=== PATIENT | female | born 1995 | race Caucasian/White ===

== ENCOUNTER 2017-12-30 01:08 | Emergency (ER) | payer OTHER ==
[~2017-12-30] VITALS: Ht 167.6 cm; Wt 59.0 kg
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
[2017-12-30] MEDS ORDERED: Ketorolac 30mg Inj IV ONE (01:15)
[2017-12-30] MEDS ORDERED: Morphine Sulfate 4mg/ml Inj (IV USE ONLY) IVP ONE (01:15)
[2017-12-30] MEDS ORDERED: LORazepam Inj 2mg/ml 1ml ONE (01:52)
[2017-12-30] MEDS ORDERED: LORazepam Inj 2mg/ml 1ml IV ONE (02:00)
[2017-12-30 02:19] VITALS: BP 109/66
--- NOTE | 2017-12-30 02:25 | Diagnostic Imaging Report ---
EXAM: XR Chest, 1 View CLINICAL HISTORY: TRAUMA TECHNIQUE: Frontal view of the chest. COMPARISON: No relevant prior studies available. FINDINGS: Lungs: Unremarkable. No consolidation. Pleural space: Unremarkable. No pneumothorax. Heart: Unremarkable. No cardiomegaly. Mediastinum: Unremarkable. Bones/joints: Fracture of the midshaft of the left clavicle with 1.1 cm offset of the fracture. IMPRESSION: Fracture of the midshaft of the left clavicle with 1.1 cm offset of the fracture.
--- NOTE | 2017-12-30 02:25 | Diagnostic Imaging Report ---
EXAM: XR Left Clavicle Complete, 2 or More Views CLINICAL HISTORY: TRAUMA TECHNIQUE: Frontal and lordotic views of the left clavicle. COMPARISON: No relevant prior studies available. FINDINGS: Bones/joints: Fracture of the midshaft of the left clavicle with 1.1 cm offset at the fracture line. No dislocation. Soft tissues: Unremarkable. IMPRESSION: Fracture of the midshaft of the left clavicle with 1.1 cm offset at the fracture line.
[2017-12-30] MEDS ORDERED: fentaNYL 100 mcg/2 mL IV ONE (02:45)
[2017-12-30] MEDS ORDERED: Bacitracin Oint UD TOPIC ONE ×2 (02:53→03:00)
[2017-12-30] MEDS ORDERED: NORCO 5-325 TA1 EACH ORAL (03:16)
[2017-12-30] MEDS ORDERED: IBUPROFEN600 MG ORAL (03:16)
[2017-12-30 05:00] VITALS: BP 125/70
== END 2017-12-30 05:00 | disposition home or self-care (01) ==
LOC: EDBD 01:08 → EMR 03:17
DX: S42.022A Displaced fracture of shaft of left clavicle, initial encounter for closed fracture (principal); S60.511A Abrasion of right hand, initial encounter; W03.XXXA Other fall on same level due to collision with another person, initial encounter; Y92.098 Other place in other non-institutional residence as the place of occurrence of the external cause; F17.200 Nicotine dependence, unspecified, uncomplicated; Z88.1 Allergy status to other antibiotic agents
CPT/HCPCS: 71045; 73000; 96374; 96375; 99284; J1885; J2270; J2405; J3010

== ENCOUNTER → 2018-03-24 | Emergency (ER) | payer OTHER ==
[~2018-03-24] VITALS: Ht 170.2 cm; Wt 59.0 kg
[~2018-03-24] MED LIST: ALBUTEROL SULF8.5 GM INH; Albuterol/Ipratropium 3ml neb ONE; IBUPROFEN600 MG ORAL; NORCO 5-325 TA1 EACH ORAL; PREDNISONE20 MG ORAL
[2018-03-24] MEDS: Albuterol ud Inhalation HHN SCH ×3 (07:36→08:00)
[2018-03-24] MEDS: Ipratropium 0.02% Inh Soln 2.5ml UD HHN SCH ×3 (07:36→08:00)
[2018-03-24 07:40] VITALS: BP 134/78
[2018-03-24 07:55] VITALS: BP 134/78
--- NOTE | 2018-03-24 08:24 | Emergency Room Report ---
History of Present Illness General Chief Complaint: Asthma Source: Patient Present Illness HPI 22-year-old female presents ED presents ED for evaluation. Coming in complaining of shortness of breath and wheezing. History of asthma. Started about one hour ago. States she does not have her inhaler. Upon arrival patient is very anxious and crying stating that she is short of breath. History of anxiety. Denies smoking or drug use. No other aggravating relieving factors. Denies any other associated symptoms Allergies: Coded Allergies: AMOXICILLIN (Verified Allergy, Unknown, 12/30/17) Patient History Past Medical History: none Past Surgical History: none Social History: Denies: smoking, alcohol use, drug use Now: No Immunizations: UTD Reviewed Nursing Documentation: PMH: Agreed; PSxH: Agreed Nursing Documentation-PMH Past Medical History: No History, Except For Hx Asthma: Yes Review of Systems All Other Systems: negative except mentioned in HPI Physical Exam Vital Signs Date Time Temp Pulse Resp B/P (MAP) Pulse Ox O2 Delivery O2 Flow Rate FiO2 03/24/18 07:29 98.4 129 28 136/77 95 Room Air 03/24/18 07:30 21 Sp02 EP Interpretation: reviewed, normal General Appearance: alert, GCS 15, non-toxic, mild distress Head: normocephalic, atraumatic Eyes: bilateral eye normal inspection, bilateral eye PERRL ENT: hearing grossly normal, normal pharynx, no angioedema, normal voice Neck: full range of motion, supple/symm/no masses Respiratory: chest non-tender, normal breath sounds, speaking full sentences, wheezing Cardiovascular #1: no edema, tachycardia Cardiovascular #2: 2+ carotid (R), 2+ carotid (L), 2+ radial (R), 2+ radial (L) , 2+ dorsalis pedis (R), 2+ dorsalis pedis (L) Gastrointestinal: normal bowel sounds, non tender, soft, non-distended, no guarding, no rebound Rectal: deferred Genitourinary: normal inspection, no CVA tenderness Musculoskeletal: back normal, gait/station normal, normal range of motion, non- tender Neurologic: alert, oriented x3, responsive, motor strength/tone normal, sensory intact, speech normal Psychiatric: judgement/insight normal, memory normal, mood/affect normal, no suicidal/homicidal ideation Reflexes: 3+ bicep (R), 3+ bicep (L), 3+ tricep (R), 3+ tricep (L), 3+ knee (R) , 3+ knee (L) Skin: normal color, no rash, warm/dry, well hydrated Lymphatic: no adenopathy Medical Decision Making Diagnostic Impression: Primary Impression: Asthma exacerbation Qualified Codes: J45.901 - Unspecified asthma with (acute) exacerbation ER Course Hospital Course 22-year-old female presents to ED complaining of SOB,wheezing, anxiety Differential diagnoses include: URI, bronchitis, asthma/COPD, pneumonia Clinical course Patient placed on stretcher. After initial history, physical exam reveals a female in no acute distress. Bilateral TM unremarkable. No pharyngeal erythema. No tonsillar exudates. No lymphadenopathy. wheezing noted on exam , no signs of respiratory distress or retractions. Patient given Prednisone and albuterol treatment in ED with symptoms improved. On reassessment patient feels better. No longer feeling anxious as her symptoms have improved. Reassurance given. Safe for discharge close outpatient follow-up Diagnosis - asthma exacerbation Stable and discharged home with prescriptions for albuterol, prednisone. Instructed to followup with PMD. Return to ED if symptoms recur or worsen Last Vital Signs Date Time Temp Pulse Resp B/P (MAP) Pulse Ox O2 Delivery O2 Flow Rate FiO2 03/24/18 07:55 98.1 123 18 134/78 100 Room Air 03/24/18 07:30 21 Status: improved Disposition: HOME, SELF-CARE Condition: Stable Scripts Albuterol Sulfate* (ALBUTEROL SULFATE MDI*) 8.5 Gm Hfa.aer.ad 2 PUFF INH Q6H, #1 EA 0 Refills Prov: Juan Faulkner MD 03/24/18 Prednisone* (PREDNISONE*) 20 Mg Tablet 40 MG ORAL DAILY, #10 TAB Prov: Juan Faulkner MD 03/24/18 Referrals: NOT CHOSEN IPA/,REFERRING (PCP) Juan Faulkner MD Mar 24, 2018 08:24
[2018-03-24 08:47] VITALS: BP 114/66
== END | disposition home or self-care (01) ==
LOC: EMR 07:38
DX: J45.901 Unspecified asthma with (acute) exacerbation (principal); Z88.0 Allergy status to penicillin
CPT/HCPCS: 94644; 94664; 99284; J7512; J7620